=== PATIENT | female | born 1990 | race Caucasian/White ===

== ENCOUNTER 2016-07-16 13:06 | Emergency (ER) | payer OTHER ==
[2016-07-16 13:15] VITALS: BP 131/82
[2016-07-16 13:37] LABS: MANUAL DIFF NEEDED? NO
[2016-07-16 13:41] LABS: URINE MICRO REVIEW NEEDED? NO; URINE SOURCE CLEAN CATCH
[2016-07-16 13:43] LABS: BASO% 0.5 % (0.0-0.8); EOS# 0.07 X1000 (0.0-0.7); EOS% 0.9 % (0.0-10.0); HEMATOCRIT 38.7 % (37.0-47.0); HEMOGLOBIN 13.3 g/dL (12.0-16.0); IMM GRAN# 0.02 X1000 (0.0-0.04); IMM GRAN% 0.3 % (0.0-0.5); LYMPH# 2.08 X1000 (1.2-3.4); LYMPH% 26.9 % (20.5-51.1); MCH 29.2 PG (27-31); MCHC 34.4 g/dL (33-37); MCV 84.9 FL (81-99); MONO# 0.43 X1000 (0.11-0.59); MONO% 5.6 % (1.7-9.3); MPV 10.8 FL (7.4-10.4); NEUT% 65.8 % (42.2-75.2); PLT 268 X1000 (130-400); RBC 4.56 XMIL (4.2-5.4)
[2016-07-16 13:53] LABS: UR EPITHELIAL CELLS <10 /HPF (<10); URINE BACTERIA NEGATIVE /HPF; URINE RBC TNTC /HPF (<10)
[2016-07-16 13:56] LABS: BILIRUBIN URINE NEGATIVE (NEGATIVE); BLOOD URINE LARGE (NEGATIVE); COLOR ORANGE; GLUCOSE URINE NEGATIVE (NEGATIVE); LEUKOCYTES URINE NEGATIVE (NEGATIVE); NITRITE URINE NEGATIVE (NEGATIVE); PH URINE 5.5; PROTEIN URINE 50 mg/dL (NEGATIVE); SP GRAVITY URINE 1.028; TURBIDITY URINE HAZY (CLEAR); URINE CULTURE NEEDED? YES; UROBILINOGEN URINE NORMAL (NORMAL)
[2016-07-16] MEDS ORDERED: TORADOL IM ONE (14:00)
[2016-07-16 14:06] LABS: AGAP 14; ALBUMIN 4.4 g/dL (3.5-5.0); ALKALINE PHOSPHATASE 60 U/L (32-104); AMYLASE 31 U/L (20-200); BUN 13 mg/dL (8-22); CALCIUM 9.3 mg/dL (8.8-10.2); CHLORIDE 101 mmol/L (98-107); COSMO 277; GOT 12 U/L (10-30); GPT 14 U/L (10-36); LIPASE 23 U/L (13-60); POTASSIUM 4.1 mmol/L (3.5-5.1); SODIUM 137 mmol/L (136-145); TCO2 22 mmol/L (25-35); TOTAL BILIRUBIN 0.37 mg/dL (0.20-1.00); TOTAL PROTEIN 7.2 g/dL (6.3-8.3)
[2016-07-16] MEDS ORDERED: DILAUDID IV ONE (14:31)
--- NOTE | 2016-07-16 14:36 | PROVIDER DOCUMENTATION ---
HPI-Abdominal Pain/GI Problem - General Chief Complaint: Abdominal Pain Stated Complaint: abd pain Time Seen by Provider: 07/16/16 13:54 Source: patient Allergies/Adverse Reactions: Patient Allergies Allergy/AdvReac Type Severity Reaction Status Date / Time No Known Allergies Allergy Verified 07/16/16 14:06 Home Medications: Aspirin [Aspirin EC] 81 mg PO DAILY 06/11/15 - History of Present Illness-ABD Nature of Presenting Problems: patient is a 25 yo F that presents to the ER with right flank pain that radiates to RLQ and back pain. She has dysuria but no n/v/d. Abdominal Pain Onset Location: reports: flank (right) Pain Radiation: reports: RLQ, back Quality of Pain: reports: sharp Severity in ED: reports: moderate Onset/Duration: reports: abrupt, 1/2 hour ago Timing: reports: still present, constant Activities at Onset: reports: none Exposure to sick contacts?: No Modifying Factors: worse with: urinating Associated Symptoms: reports: back/neck pain. denies: diarrhea, dizziness, fever/chills, genitourinary problems, nausea, vomiting Similar Symptoms Previously?: No Recently seen or treated by another doctor?: No Review of Systems - Adult - REVIEW OF SYSTEMS - ADULT Constitutional: denies: chills, fever Eyes: reports: no symptoms reported Ears, Nose, Mouth & Throat: reports: no symptoms reported Cardiovascular: denies: chest pain, palpitations, syncope Respiratory: denies: cough, shortness of breath, wheezing Gastrointestinal: reports: abdominal pain. denies: diarrhea, nausea, vomiting Genitourinary: reports: dysuria, flank pain (right). denies: hematuria, urgency Musculoskeletal: reports: back pain. denies: joint pain, neck pain Integumentary: reports: no symptoms reported Neurological: reports: no symptoms reported Psychiatric: reports: no symptoms reported Endocrine: reports: no symptoms reported Hematologic/Lymphatic: reports: no symptoms reported Allergic/Immunologic: reports: no symptoms reported All Other Systems: Reviewed and Negative Past History - Adult - PAST MEDICAL HISTORY-ADULT Review of Records: reports: Old Records Reviewed, Nursing Assessment Review, Medications Reviewed Respiratory: reports: sleep apnea Obstetrical/Gynecological: reports: other (cervical ca) Other Conditions: 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) - PRIOR SURGERIES/PROCEDURES Surgical/Procedure History: reports: tonsillectomy, other (cervical ca) - IMMUNIZATION STATUS Childhood Immunizations: See Nurse Assessment Flu Vaccine: See Nurse Assessment - FAMILY HISTORY Family History: reviewed, not pertinent - SOCIAL HISTORY Smoking: non-smoker Living Situation: family Physical Exam-General - PHYSICAL EXAM-ADULT Initial Vital Signs Reviewed: Yes - CONSTITUTIONAL General Appearance: alert, mild distress, anxious - EYES Eyes: PERRL/EOMI, pink conjunctivae - HEAD, EARS, NOSE, MOUTH & THROAT HENMT: normocephalic/atraumatic, moist mucous membranes, normal ENT inspection - NECK Neck: full range of motion, normal inspection. negative: lymphadenopathy - RESPIRATORY Respiratory: lungs clear, normal breath sounds, no respiratory distress, no accessory muscle use - CARDIOVASCULAR Cardiovascular: regular rate, rhythm, no edema, no murmur - GASTROINTESTINAL (ABDOMEN) Abdominal Exam: normal bowel sounds, non tender, soft, no organomegaly, no pulsatile mass - MUSCULOSKELETAL Back Exam: no vertebral tenderness, CVA tenderness (right) Extremity: normal range of motion, non-tender, normal inspection, no pedal edema - SKIN Integumentary: normal color, warm/dry - NEUROLOGIC Neurologic: grossly normal, no motor/sensory deficits - PSYCHIATRIC Psych/Mental Status: oriented x 3, anxious Progress - PLAN OF CARE/RESULTS Progress/Plan/Lab Results: plan of care-labs, meds, ct rss Ct Renal Stone Search report as follows at least 2 and possibly up to 4 stones in the distal right ureter slightly proximal to the UVJ. The 2 largest stones measures 7mm and 6mm in maximum axial dimensions, respectively. assoicated substantial hydroureter or hydronephrosis on the right. Vital Signs Temp Pulse Resp BP Pulse Ox 07/16/16 13:12 98.0 F 91 H 20 131/82 100 No Known Allergies Allergy (Verified 07/16/16 14:06) Aspirin [Aspirin EC] 81 mg PO DAILY 06/11/15 Hydrocodone/Acetaminophen [[place] 10-325 Tablet] 1 each PO Q4-6H PRN PRN #30 tablet 07/16/16 Tamsulosin [Flomax] 0.4 mg PO DAILY #7 capsule 07/16/16 Dietary Diet NPO Start Brandy Jul 16 1316 Laboratory 07/16/16 07/16/16 07/16/16 13:36 13:36 13:22 WBC 7.74 RBC 4.56 Hgb 13.3 Hct 38.7 MCV 84.9 MCH 29.2 MCHC 34.4 RDW Std Deviation 12.4 Plt Count 268 MPV 10.8 H Immature Gran % (Auto) 0.3 Neut % (Auto) 65.8 Lymph % (Auto) 26.9 Chambers % (Auto) 5.6 Eos % (Auto) 0.9 Baso % (Auto) 0.5 Immature Gran # (Auto) 0.02 Neut # (Auto) 5.10 Lymph # (Auto) 2.08 Chambers # (Auto) 0.43 Eos # (Auto) 0.07 Baso # (Auto) 0.04 Sodium Potassium Chloride Carbon Dioxide Anion Gap BUN Creatinine Estimated GFR/1.73 m2 BUN/Creatinine Ratio Glucose Calculated Osmolality Calcium Total Bilirubin AST ALT Alkaline Phosphatase Total Protein Albumin Globulin Albumin/Globulin Ratio Amylase Lipase Urine Source CLEAN CATCH Urine Color ORANGE Urine Turbidity HAZY Urine pH 5.5 Ur Specific Holden 1.028 Urine Protein 50 A Ur Glucose (Stick) NEGATIVE Ur Ketones (Stick) NEGATIVE Urine Blood LARGE A Urine Nitrite NEGATIVE Urine Bilirubin NEGATIVE Urobilinogen Dipstick NORMAL Urine Leukocytes NEGATIVE Urine WBC (Auto) 10-20 A Urine RBC (Auto) TNTC A U Epithel Cells (Auto) <10 Urine Bacteria (Auto) NEGATIVE Urine Test NEGATIVE 07/16/16 13:22 WBC RBC Hgb Hct MCV MCH MCHC RDW Std Deviation Plt Count MPV Immature Gran % (Auto) Neut % (Auto) Lymph % (Auto) Chambers % (Auto) Eos % (Auto) Baso % (Auto) Immature Gran # (Auto) Neut # (Auto) Lymph # (Auto) Chambers # (Auto) Eos # (Auto) Baso # (Auto) Sodium 137 Potassium 4.1 Chloride 101 Carbon Dioxide 22 L Anion Gap 14 BUN 13 Creatinine 0.9 Estimated GFR/1.73 m2 > 60 BUN/Creatinine Ratio 14 Glucose 148 H Calculated Osmolality 277 Calcium 9.3 Total Bilirubin 0.37 AST 12 ALT 14 Alkaline Phosphatase 60 Total Protein 7.2 Albumin 4.4 Globulin 2.8 Albumin/Globulin Ratio 1.6 Amylase 31 Lipase 23 Urine Source Urine Color Urine Turbidity Urine pH Ur Specific Holden Urine Protein Ur Glucose (Stick) Ur Ketones (Stick) Urine Blood Urine Nitrite Urine Bilirubin Urobilinogen Dipstick Urine Leukocytes Urine WBC (Auto) Urine RBC (Auto) U Epithel Cells (Auto) Urine Bacteria (Auto) Urine Test Orders Category Date Time Status IV [Saline Loc] NOW Care 07/16/16 14:30 Active NPO Diet 07/16/16 13:16 Active ABDOMEN/PELVIS W/O CONTRAST [CT] Stat Exams 07/16/16 14:01 Completed AMYLASE [CHEM] Stat Lab 07/16/16 13:22 Completed CBC WITH ELECTRONIC DIFF [HEME] Stat Lab 07/16/16 13:22 Completed COMPREHENSIVE METABOLIC PANEL [CHEM] Stat Lab 07/16/16 13:22 Completed LIPASE [CHEM] Stat Lab 07/16/16 13:22 Completed TEST-URINE [PREG] Stat Lab 07/16/16 13:36 Completed URINALYSIS W/POSS RFLX CULT [URINALYSIS] Stat Lab 07/16/16 13:36 Completed URINE CULTURE [RM] Routine Lab 07/16/16 14:35 Received Hydromorphone [Dilaudid] Med 07/16/16 14:31 Discontinued 1 mg IV NOW ONE Ketorolac [Toradol] Med 07/16/16 14:00 Discontinued 60 mg IM NOW ONE Tamsulosin [Flomax] Med 07/16/16 15:04 Discontinued 0.4 mg PO NOW ONE pt will be d/c home f/u with in office tomorrow - CT/MRI 1 CT Study: Renal Stone Impression: Abnormal CT Results: see progress note for complete report - CONSULTS/PCP/HOSPITALIST Notification #1 *Consult/PCP/Hospitalist*: Time Discussed: 15:14 Reason/Comments: give meds Consult Disposition: F/U in office Departure - Departure Time of Disposition Order: 15:18 DIAGNOSIS: Kidney stones Disposition: HOME 01 Certified Medical Emergency: Emergent Condition: Stable Prescriptions: Tamsulosin [Flomax] 0.4 mg PO DAILY #7 capsule Hydrocodone/Acetaminophen [[place] 10-325 Tablet] 1 each PO Q4-6H PRN PRN #30 tablet PRN Reason: Pain Referrals: None,PCP [Primary Care Provider] - Oscar Ortiz, DO [STAFF PHYSICIAN] - (tomorrow in office) Instructions: Kidney Stones, Ocop-fa-Edek Attestation - Scribe Verification/Attestation Scribe:: Zeke Broderick Acting as Scribe for:: Ray Coelho Scribe documention review:: This chart was documented by a scribe and accurately reflects the service the provider performed and the decisions made by the provider. Physician Attestation - Physician Attestation I, the provider, attest to the following statement:: Ray Coelho Physician documentation Attestation:: This documentation recorded by the scribe accurately reflects the service I personally performed and the decisions made by me.
--- NOTE | 2016-07-16 14:58 | Diag Imaging Result Document ---
PROCEDURE NAME: ABDOMEN/PELVIS W/O CONTRAST - 07/16/2016 CT RENAL STONE SEARCH WITHOUT CONTRAST: FINDINGS: A dose reduction protocol issues. No comparison exam. There are at least 2 and possibly 4 stones in the distal right ureter slightly proximal to the ureterovesical junction. The 2 largest stones measure 7 mm and 6 mm in maximum axial dimension, respectively. There is associated substantial hydroureter and hydronephrosis on the right. There are no other renal stones identified. There is no left hydronephrosis. There is no evidence of bowel obstruction. The appendix is unremarkable. There is no free air. There is minimal free fluid in the posterior pelvis. IMPRESSION: At least 2 and possibly up to 4 stones in the distal right ureter slightly proximal to the ureterovesical junction. The 2 largest stones measure 7 mm and 6 mm in maximum axial dimension, respectively. Associated substantial hydroureter and hydronephrosis on the right. [facility]
[2016-07-16] MEDS ORDERED: FLOMAX PO ONE (15:04)
== END 2016-07-16 16:06 | disposition home or self-care (01) ==
LOC: ED 13:06
DX: N13.2 Hydronephrosis with renal and ureteral calculous obstruction (principal); N13.4 Hydroureter; R10.9 Unspecified abdominal pain; R10.31 Right lower quadrant pain; M54.9 Dorsalgia, unspecified; R30.0 Dysuria; Z79.82 Long term (current) use of aspirin; Z85.41 Personal history of malignant neoplasm of cervix uteri
CPT/HCPCS: 74176; 80053; 81001; 81025; 82150; 83690; 85025; 87088; 96374; 96375; J1170; J1885